=== PATIENT | male | born 1960 | race Caucasian/White ===

== ENCOUNTER 2017-12-04 08:21 | Day surgery (SDC) | payer OTHER ==
[~2017-12-04] VITALS: Ht 188 cm; Wt 96.2 kg
[2017-12-04] MEDS ORDERED: DIAZ5 PO (11:45)
== END 2017-12-04 14:28 | disposition home or self-care (01) ==
LOC: ORSCSDS 08:21
PROVIDERS: Orthopaedic Surgery
PROC: 0SBD4ZZ Excision of Left Knee Joint, Percutaneous Endoscopic Approach (ICD-10-PCS; principal; 2017-12-04 12:30)
DX: M23.201 Derangement of unspecified lateral meniscus due to old tear or injury, left knee (principal); M94.262 Chondromalacia, left knee
CPT/HCPCS: J0171; J0690; J1100; J2250; J2370; J2405; J3010